=== PATIENT | male | born 1985 | race African-American/Black ===

== ENCOUNTER 2017-04-15 19:21 | Observation (INO) | payer SELFPAY ==
[2017-04-15] MEDS ORDERED: Azithromycin 250 MG TAB ONE (19:38)
[2017-04-15] MEDS ORDERED: cefTRIAXone\\ROCEPHIN 1 GM, Syringe 0.4 ML in Sterile Water 9.6 ML SLOW IVP SCH (19:45)
[2017-04-15] MEDS ORDERED: Albuterol Sulfate 2.5 mg/3 ml Neb ONE (21:12)
[2017-04-15] MEDS ORDERED: Ibuprofen 200 MG TAB ONE (21:36)
[2017-04-15] MEDS ORDERED: Sodium Chloride 0.9% 1,000 ML IV SCH (23:47)
[2017-04-15] MEDS ORDERED: Ondansetron HCl/PF 4 MG/2 ML Vial IVP PRN (23:47)
[2017-04-15] MEDS ORDERED: Acetaminophen 325 MG TAB PO PRN (23:47)
[2017-04-15] MEDS ORDERED: Ondansetron ODT 4 MG TAB SL PRN (23:47)
[2017-04-15 23:53] VITALS: BMI 27.8
[2017-04-16] MEDS ORDERED: Diabetic Tussin 200 MG/10 ML UDCUP PO PRN (02:06)
[2017-04-16] MEDS ORDERED: Senokot 8.6 MG TAB PO PRN (02:06)
[2017-04-16] MEDS ORDERED: HYDROcodone/Acetaminophen 5/325 mg Tablet PO PRN (02:06)
[2017-04-16] MEDS ORDERED: Lorazepam 1 MG TAB PO PRN (02:06)
[2017-04-16] MEDS ORDERED: Mag-Al 1200 mg/1200 mg/30 ML UDCUP PO PRN (02:06)
[2017-04-16] MEDS ORDERED: hydrALAZINE 20 MG/ML VIAL SLOW IVP PRN (02:06)
[2017-04-16] MEDS ORDERED: Loratadine 10 MG TAB PO PRN (02:06)
[2017-04-16] MEDS ORDERED: Ondansetron HCl/PF 4 MG/2 ML Vial IVP PRN (02:06)
[2017-04-16] MEDS ORDERED: Calcium Carbonate 500 MG ChewTAB PO PRN (02:06)
[2017-04-16] MEDS ORDERED: Benzonatate 100 MG CAP PO PRN (02:06)
[2017-04-16] MEDS ORDERED: Nitroglycerin 0.4 MG TAB (25 Tab Bottle) SL PRN (02:06)
[2017-04-16] MEDS ORDERED: traMADol HCl 50 MG TAB PO PRN (02:06)
[2017-04-16] MEDS ORDERED: cloNIDine 0.1 MG TAB PO PRN (02:06)
[2017-04-16] MEDS ORDERED: Acetaminophen 325 MG TAB PO PRN (02:06)
[2017-04-16] MEDS ORDERED: Bisacodyl 5 MG TAB PO PRN (02:06)
[2017-04-16] MEDS ORDERED: Sodium Chloride 0.9% 1,000 ML IV SCH (02:30)
[2017-04-16] MEDS ORDERED: Cepastat Lozenges 1 LOZ PO PRN (02:31)
[2017-04-16 03:12] LABS: #Basophils 0.1 thou/uL (0.0-0.2); #Eosinphils 0.4 thou/uL (0.0-0.7); #Lymphocytes 1.6 thou/uL (1.20-3.40); #Monocytes 1.1 thou/uL (0.11-0.59); #Neutrophils 6.9 thou/uL (1.40-6.50); %Basophils 0.5 % (0.0-1.0); %Eosinophils 4.2 % (0.0-10.0); %Lymphocytes 15.5 % (21.0-51.0); %Monocytes 11.4 % (0.0-10.0); Hematocrit 39.9 % (42.0-52.0); Red Blood Cell (RBC) Count 4.64 mill/uL (4.70-6.10)
[2017-04-16 03:39] LABS: Anion Gap 10 mmol/L (10-20); BUN (Urea Nitrogen) 10 mg/dL (8.9-20.6); Calc. Creatinine Clearance 105 mL/min (70-130); Calcium 9.3 mg/dL (7.8-10.44); Carbon Dioxide 27 mmol/L (22-29); Chloride 104 mmol/L (98-107); Estimated GFR-MDRD 75
--- NOTE | 2017-04-16 05:04 | HP ---
PRIMARY CARE PHYSICIAN: None. CHIEF COMPLAINT: Fever, shortness of breath and chest tightness along with cough. HISTORY OF PRESENT ILLNESS: Mr. Sandesr is a 31-year-old male without any signific ant past medical history who presented to the emergency room in [place] for the above-mentioned compl aint. History is obtained mainly by the patient himself and electronic medical records have been re viewed. According to Mr. Sanders he has been feeling poorly for the last 2 days. He has been noticing weakn ess and cough which has been worsening. He is not bringing up any phlegm, but noticed that he is ge tting short of breath and that he has some tightness in his chest. He also reports subjective fever s associated with some chills. Upon presentation to the ER, he was found to be somewhat hypoxic with oxygen saturation 91% on room air. His temperature was elevated to 101.8. He was otherwise hemodynamically stable. Chest x-ray was done, which did not show significant amount of consolidation, but on clinical examination, he sebastian d wheezes and rales and rhonchi. His lactic acid was also elevated and his white cell count elevate d to 13.1 with 84% neutrophils. Given these findings, he was started on empiric treatment of pneumo gloria and was transferred to our facility. Here lactic acid was repeated which is higher than previous at 3.2. He is now being admitted under observation status for community-acquired pneumonia. The patient denies any recent sick contacts. He denies any drug abuse. He denies any recent travel . His influenza testing was negative at the outside emergency room. PAST MEDICAL HISTORY: History of allergies and meningitis. PAST SURGICAL HISTORY: Reviewed with the patient and none. SOCIAL HISTORY: He denies any drug, tobacco or alcohol abuse. FAMILY HISTORY: He denies having any history of coronary artery disease, stroke, cancer, diabetes o r hypertension running in his family, reviewed with the patient. ALLERGIES: No known medication allergies. MEDICATIONS: None. REVIEW OF SYSTEMS: The following complete review of systems was negative, unless otherwise mentioned in the HPI or below: Constitutional: Weight loss or gain, ability to conduct usual activities. Skin: Rash, itching. Eyes: Double vision, pain. ENT/Mouth: Nose bleeding, neck stiffness, pain, tenderness. Cardiovascular: Palpitations, dyspnea on exertion, orthopnea. Respiratory: Shortness of breath, wheezing, cough, hemoptysis, fever or night sweats. Gastrointestinal: Poor appetite, abdominal pain, heartburn, nausea, vomiting, constipation, or diarrhea. Genitourinary: Urgency, frequency, dysuria, nocturia. Musculoskeletal: Pain, swelling. Neurologic/Psychiatric: Anxiety, depression. Allergy/Immunologic: Skin rash, bleeding tendency. LABORATORY DATA: CBC shows WBCs 13.1, platelet count of 207, hemoglobin 15.2. Serum chemistries un remarkable except for creatinine at 1.40 and lactic acid 3.2. Chest x-ray by my review has no evidence to suggest pulmonary effusion, edema or infiltrate. PHYSICAL EXAMINATION: VITAL SIGNS: Most recent vital signs include temperature 98.8, pulse of 80, respirations 18, satura ting 91% on room air, blood pressure 134/63. GENERAL: He is lying comfortably in bed in no acute distress, awake, alert, oriented x3. HEENT: Mucous membranes moist and pink. No oropharyngeal exudate or erythema. Head is normocephal ic, atraumatic. Pupils equally reactive to light and accommodation. Extraocular movements intact. NECK: Supple without any lymphadenopathy, JVD or bruit. CHEST: Clear to auscultation except for a few wheezes and rhonchi diffusely. Air entry equal on raquel th sides. CARDIOVASCULAR: Rate and rhythm is regular without any murmur, rubs or gallops. NEUROLOGIC: Nonfocal. PSYCHIATRIC: Normal affect. SKIN: Free of any rashes or bruises. Feels warm and dry to touch. VASCULAR: +2 pedal pulses felt bilaterally. IMPRESSION AND PLAN: 1. Pneumonia with early sepsis. The patient has cultures drawn in the emergency room and will be c ontinued on IV antibiotic for possible pneumonia. We will also obtain a urinalysis for completion f or workup of sepsis. Also obtain a urine drug screen. He will be treated with oxygen, IV fluids, a nd p.r.n. medication including DuoNebs. We will add steroids inhalers in the form of Qvar as well. The patient denies any history of asthma, but he does appear to have some tightness on presentation and wheezing on examination. He has been provided with influenza vaccination also. 2. Elevated D-dimer and elevated WBC, consistent with early sepsis. Continue IV fluids, IV antibio tic as above. 3. Hypoxia, most likely viral bronchitis that has now evidence of bacterial pneumonia. Antibiotic and treatment as above. We will also send a D-dimer to rule out pulmonary embolism, though clinical suspicion is low at this time. 4. Deep venous thrombosis and gastrointestinal prophylaxis. 5. Add p.r.n. medication orders. 6. Walking program. DISPOSITION: The patient is currently being admitted under observation status for treatment of pneu monia. Further management will depend upon his clinical course.
[2017-04-16] MEDS ORDERED: Mometasone 100 MCG HFA INHALER INH SCH (06:30)
[2017-04-16 06:56] LABS: Bilirubin Negative (Negative); Blood, Urine Trace (Negative); Glucose, Urine (Dipstick) Negative (Negative); Ketone, Urine Negative (Negative); Nitrite Negative (Negative); Protein, Urine (Dipstick) Trace mg/dL (Neg-Trace); Urobilinogen 0.2 mg/dL (0.2-1.0)
[2017-04-16 07:13] LABS: Bacteria/HPF None Seen HPF (None Seen); Hyaline Casts/LPF 0-3 HYALINE CAST LPF (0-3 Hyaline); RBC/HPF 0-3 HPF (0-3); Squamous Epithelial 0-3 HPF (0-3)
[2017-04-16 07:35] LABS: Amphetamine Not Detected (NotDetected); Methadone Not Detected (NotDetected); Methamphetamine Not Detected (NotDetected)
[2017-04-16 07:57] LABS: LegU Control Bar Appear? YES (CONTROL BAR); LegionellaU Control Bkground? CLEAR/WHITE (CLR/WHITE); Strp pneuU Control Background? CLEAR/WHITE (CLR/WHITE); Strp pneumo Control Bar Appear YES (CONTROL BAR)
[2017-04-16] MEDS ORDERED: Enoxaparin Sodium 40 MG/0.4 ML SYRINGE SC SCH (09:00)
[2017-04-16] MEDS ORDERED: guaiFENesin ER 600 MG TAB PO SCH (09:00)
[2017-04-16] MEDS ORDERED: Famotidine 20 MG TAB PO SCH (09:00)
[2017-04-16] MEDS ORDERED: FLU VACC QS2017-18 36 mo. & older 0.5 ML SYRINGE IM ONE (09:00)
--- NOTE | 2017-04-16 09:05 | DIS ---
DATE OF ADMISSION: 04/15/2017 DATE OF DISCHARGE: 04/16/2017 The patient was admitted at 2222 on 04/15/2017, being discharged at noon on 04/16/2017 for a total s deepak of just under 14 hours. DISCHARGE DIAGNOSES: 1. Community-acquired pneumonia, viral versus bacterial. 2. Acute hypoxemic respiratory failure. 3. Acute bronchoconstriction secondary to #1. 4. Elevated lactic acid level, likely early sepsis. CONSULTATIONS: None. PROCEDURES: None. HISTORY AND PHYSICAL: Mr. Sanders is a 31-year-old male with no past medical histo ry who presented to the emergency department for evaluation for shortness of breath and chest tightn ess. He presented to the emergency room in [place]. He had been doing fairly poorly for the last 2 days. In the ER, he was found to have O2 saturation of 91% on room air, temperature was 101.8. Chest x-ra y was unremarkable. Exam revealed wheezes and rhonchi. There was a lactic acid and white blood tequila l count elevation. The patient was subsequently transferred here to our ER for evaluation and admit dimas to our service. HOSPITAL COURSE: The patient was seen and examined by Dr. Gonzalez. He was admitted and started on nebulizer treatments and oxygen to wean. D-dimer was normal. CT scan was not obtained. He was sta rted on Levofloxacin 750 mg IV. Overnight, the patient did well. He was weaned off of oxygen. He had no further fever. Blood coun t this morning is back to normal and lactic acid normalized. He did have some expiratory wheezing o n exam, but markedly improved. He was subsequently stable for discharge with outpatient followup. The patient was seen and examined at discharge. He did have some diffuse mild expiratory wheezes on the right, but was not on oxygen. Discharge plan and disposition were discussed with the patient face to face at the bedside. DISCHARGE MEDICATIONS: 1. Levofloxacin 500 mg tablets dispensed #7 1 p.o. daily until gone. 2. Albuterol HFA 1-2 puffs q.4h. p.r.n. shortness of breath or wheezing. FOLLOWUP APPOINTMENTS: 1. Follow up with primary care physician within a week. He has none listed . Instructions to return to emergency department for worsening symptoms. DISCHARGE CONDITION: Stable. DISPOSITION: The patient will be discharged home via private vehicle.
[2017-04-16 11:43] VITALS: BP 120/68; TEMP 99.3
== END 2017-04-16 12:47 | disposition home or self-care (01) ==
LOC: ERS 19:21 → 2SW 22:22
PROVIDERS: ADMIT Internal Medicine; ATTEND Internal Medicine
DX: J18.9 Pneumonia, unspecified organism (principal); J96.01 Acute respiratory failure with hypoxia; J98.01 Acute bronchospasm; R74.0 Nonspecific elevation of levels of transaminase and lactic acid dehydrogenase [LDH]; Z79.899 Other long term (current) drug therapy; Z86.61 Personal history of infections of the central nervous system
CPT/HCPCS: 36415; 80048; 80306; 81001; 83605; 85025; 85379; 87081; 87430; 87899; 90471; 90682; 94640; 94644; 96361; 96372; 96374; 96375; A4216; G0008; G0378; J0696; J1650; J1956; J7611; J7620; Q2036